=== PATIENT | male | born 1940 ===

== ENCOUNTER 2023-05-14 20:04 | Inpatient (IN) ==
[2023-05-14] MEDS ORDERED: Al Hydrox/Mg Hydrox/Simet LIQ 30 ML UDC PO ONE (20:56)
[2023-05-14] MEDS ORDERED: Famotidine IV 10 MG/ML 2 ml VIAL (20 mg) IV SLOW PU ONE (20:57)
[2023-05-15] MEDS ORDERED: Ondansetron 4 mg VIAL 2 MG/ML 2 ml VIAL IV PRN (01:05)
[2023-05-15] MEDS ORDERED: Calcium Carb (TUMS) 500 mg CHEW TAB PO PRN (01:06)
[2023-05-15] MEDS ORDERED: Remdesivir 100 mg Vial 200 MG in NS 0.9% 250 ml 210 ML IV ONE (01:46)
[2023-05-15] MEDS ORDERED: Dextrose 50% Syringe 50 ml 25 GM/50 ML SYRINGE IV PUSH PRN (02:01)
[2023-05-15 02:30] LABS: INR 1.36 (0.83-1.13)
[2023-05-15 03:00] LABS: Calcium 8.9 mg/dL (8.6-10.3); Creatinine, Serum 1.58 mg/dL (0.67-1.17); Potassium 4.1 mmol/L (3.5-5.0); eGFR CKD-EPI 43.4 (>60)
[2023-05-15 03:01] LABS: Albumin 3.8 g/dL (3.2-5.2); Albumin/Globulin Ratio 1.2 (1-3); Globulin 3.2 g/dL (2-4); Total Bilirubin 0.6 mg/dL (0.2-1.0)
[2023-05-15] MEDS ORDERED: Nystatin TOP POWDER 15 GM BTL TOPICAL PRN (03:07)
[2023-05-15 06:37] LABS: ABS Lymphocytes 0.8 10^3/uL (1.0-4.8); ABS Monocytes 0.2 10^3/uL (0.0-1.1); ABS Neutrophils 6.7 10^3/uL (1.5-7.6); ABS Nucleated RBC 0.01 10^3/ul; Hematocrit 49.2 % (38-53); Hemoglobin 16.6 g/dL (13.2-16.3); Lymphocyte % 9.9 %; Mean Corpuscular Hemoglobin 30.4 pg (27-33); Mean Corpuscular Hgb Conc 33.8 g/dL (31-36); Mean Corpuscular Volume 90.2 fL (80-97); Mean Platelet Volume 8.8 fL (7.5-11.2); Nucleated Red Blood Cells % 0.1 %/100WBC (0.0-0.8); Platelet Count 151 10^3/uL (150-450); Red Blood Count 5.46 10^6/uL (4.06-5.63); Red Cell Distribution Width 14.2 % (12-17); White Blood Count 7.7 10^3/uL (3.6-10.2)
[2023-05-15 06:55] LABS: Magnesium 2.2 mg/dL (1.9-2.7)
[2023-05-15 08:27] LABS: High Sensitivity Troponin 1 Hr 116 pg/mL (<20)
[2023-05-15] MEDS: Aspirin EC 81 mg TAB.EC (enteric coated) PO SCH (09:20)
[2023-05-15] MEDS: Insulin GLARGINE 100 un/ml 10 ml VIAL SUBCUT SCH (09:50)
[2023-05-15] MEDS: Dexamethasone IV 4 MG/ML VIAL 1 ml VIAL IV SLOW PU SCH (09:52)
[2023-05-15] MEDS ORDERED: NS 0.9% 500 ml BAG 500 ML IV ONE (12:36)
[2023-05-15] MEDS ORDERED: Lorazepam PYXIS KEY PRN ×2 (12:52→12:56)
[2023-05-15] MEDS ORDERED: LORazepam 2 mg VIAL 1 ml IV PUSH PRN (12:53)
[2023-05-15] MEDS ORDERED: LORazepam 2 mg VIAL 1 ml ONE (12:56)
[2023-05-15] MEDS ORDERED: LORazepam 2 mg VIAL 1 ml IV PUSH ONE (12:56)
[2023-05-15] MEDS ORDERED: Iodixanol (CONTRAST) 320 MG/ML 100 ML SDV IV ONE (13:02)
[2023-05-15] MEDS ORDERED: NS 0.9% 1000 ml BAG 1,000 ML IV ONE (13:27)
[2023-05-15 13:45] LABS: Activated Partial Thrombo Time 35.7 seconds (26.0-38.0); INR 1.43 (0.83-1.13)
[2023-05-16] MEDS ORDERED: Lorazepam PYXIS KEY PRN ×2 (00:17→18:33)
[2023-05-16] MEDS ORDERED: LORazepam 2 mg VIAL 1 ml IV PUSH ONE ×2 (00:17→18:33)
[2023-05-16 07:47] LABS: ABS Basophils 0.1 10^3/uL (0.0-0.1); ABS Lymphocytes 0.6 10^3/uL (1.0-4.8); ABS Monocytes 0.6 10^3/uL (0.0-1.1); ABS Neutrophils 11.9 10^3/uL (1.5-7.6); ABS Nucleated RBC 0.01 10^3/ul; Hematocrit 49.6 % (38-53); Hemoglobin 16.4 g/dL (13.2-16.3); Lymphocyte % 4.9 %; Mean Corpuscular Volume 90.8 fL (80-97); Mean Platelet Volume 8.8 fL (7.5-11.2); Nucleated Red Blood Cells % 0.1 %/100WBC (0.0-0.8); Platelet Count 156 10^3/uL (150-450); Red Blood Count 5.47 10^6/uL (4.06-5.63); White Blood Count 13.1 10^3/uL (3.6-10.2)
[2023-05-16 07:53] LABS: INR 1.41 (0.83-1.13)
[2023-05-16 08:04] LABS: Albumin 3.8 g/dL (3.2-5.2); Albumin/Globulin Ratio 1.2 (1-3); Calcium 9.1 mg/dL (8.6-10.3); Creatinine, Serum 1.48 mg/dL (0.67-1.17); Globulin 3.1 g/dL (2-4); Potassium 4.3 mmol/L (3.5-5.0); Total Bilirubin 0.5 mg/dL (0.2-1.0); Total Protein 6.9 g/dL (6.4-8.9); eGFR CKD-EPI 46.9 (>60)
[2023-05-16] MEDS: Remdesivir 100 mg Vial 100 MG in NS 0.9% 250 ml 230 ML IV SCH (08:44)
[2023-05-16] MEDS: Insulin GLARGINE 100 un/ml 10 ml VIAL SUBCUT SCH (08:52)
[2023-05-16] MEDS: Aspirin EC 81 mg TAB.EC (enteric coated) PO SCH (08:59)
[2023-05-16] MEDS: Dexamethasone IV 4 MG/ML VIAL 1 ml VIAL IV SLOW PU SCH (09:04)
[2023-05-16] MEDS ORDERED: Droperidol 5 MG/2 ML 2 ML VIAL IV ONE ×2 (21:10→23:01)
[2023-05-17 08:12] LABS: ABS Lymphocytes 0.9 10^3/uL (1.0-4.8); ABS Monocytes 0.5 10^3/uL (0.0-1.1); ABS Neutrophils 13.7 10^3/uL (1.5-7.6); ABS Nucleated RBC 0.03 10^3/ul; Hemoglobin 17.1 g/dL (13.2-16.3); Lymphocyte % 5.7 %; Mean Corpuscular Hemoglobin 29.6 pg (27-33); Mean Corpuscular Hgb Conc 32.9 g/dL (31-36); Mean Platelet Volume 8.8 fL (7.5-11.2); Nucleated Red Blood Cells % 0.2 %/100WBC (0.0-0.8); Platelet Count 174 10^3/uL (150-450); Red Blood Count 5.77 10^6/uL (4.06-5.63); Red Cell Distribution Width 13.8 % (12-17); White Blood Count 15.1 10^3/uL (3.6-10.2)
[2023-05-17 08:14] LABS: INR 1.57 (0.83-1.13)
[2023-05-17 08:29] LABS: Albumin 3.8 g/dL (3.2-5.2); Albumin/Globulin Ratio 1.2 (1-3); Calcium 9.2 mg/dL (8.6-10.3); Creatinine, Serum 1.38 mg/dL (0.67-1.17); Globulin 3.1 g/dL (2-4); Potassium 4.6 mmol/L (3.5-5.0); Total Bilirubin 0.5 mg/dL (0.2-1.0); Total Protein 6.9 g/dL (6.4-8.9); eGFR CKD-EPI 51.1 (>60)
[2023-05-17] MEDS: Aspirin EC 81 mg TAB.EC (enteric coated) PO SCH (10:10)
[2023-05-17] MEDS: Dexamethasone IV 4 MG/ML VIAL 1 ml VIAL IV SLOW PU SCH (10:10)
[2023-05-17] MEDS: Insulin GLARGINE 100 un/ml 10 ml VIAL SUBCUT SCH (10:13)
[2023-05-17] MEDS: Remdesivir 100 mg Vial 100 MG in NS 0.9% 250 ml 230 ML IV SCH (10:13)
[2023-05-17] MEDS ORDERED: Droperidol 5 MG/2 ML 2 ML VIAL IV PRN (12:12)
[2023-05-17] MEDS ORDERED: LORazepam 2 mg VIAL 1 ml IV PUSH PRN (12:13)
[2023-05-17] MEDS ORDERED: Lorazepam PYXIS KEY PRN (12:13)
[2023-05-17] MEDS ORDERED: Albuterol 2.5mg/3 ml (0.083%) NEB.SOLN INH PRN (15:30)
[2023-05-17] MEDS: Albuterol 2.5mg/3 ml (0.083%) NEB.SOLN INH SCH ×2 (16:03→19:31)
[2023-05-17] MEDS: SPIRIVA Respimat (tiotropium) 2.5 mcg/inh Inhaler INH SCH (18:18)
[2023-05-18] MEDS: Albuterol 2.5mg/3 ml (0.083%) NEB.SOLN INH SCH ×2 (01:42→07:58)
[2023-05-18] MEDS: SPIRIVA Respimat (tiotropium) 2.5 mcg/inh Inhaler INH SCH (07:58)
[2023-05-18] MEDS ORDERED: Albuterol 2.5mg/3 ml (0.083%) NEB.SOLN INH PRN (08:04)
[2023-05-18] MEDS: Insulin GLARGINE 100 un/ml 10 ml VIAL SUBCUT SCH (08:35)
[2023-05-18] MEDS: Remdesivir 100 mg Vial 100 MG in NS 0.9% 250 ml 230 ML IV SCH (08:36)
[2023-05-18] MEDS: Dexamethasone IV 4 MG/ML VIAL 1 ml VIAL IV SLOW PU SCH (08:36)
[2023-05-18 08:38] LABS: INR 1.36 (0.83-1.13)
[2023-05-18 08:45] LABS: Hematocrit 51.8 % (38-53); Hemoglobin 17.1 g/dL (13.2-16.3); Mean Corpuscular Hemoglobin 29.8 pg (27-33); Mean Corpuscular Hgb Conc 33.1 g/dL (31-36); Mean Platelet Volume 8.8 fL (7.5-11.2); Platelet Count 162 10^3/uL (150-450); Red Blood Count 5.75 10^6/uL (4.06-5.63); Red Cell Distribution Width 13.9 % (12-17); White Blood Count 15.3 10^3/uL (3.6-10.2)
[2023-05-18] MEDS: Aspirin EC 81 mg TAB.EC (enteric coated) PO SCH (08:46)
[2023-05-18 08:53] LABS: Albumin 3.7 g/dL (3.2-5.2); Albumin/Globulin Ratio 1.2 (1-3); Creatinine, Serum 1.48 mg/dL (0.67-1.17); Globulin 3.1 g/dL (2-4); Total Bilirubin 0.4 mg/dL (0.2-1.0); Total Protein 6.8 g/dL (6.4-8.9); eGFR CKD-EPI 46.9 (>60)
[2023-05-18 12:47] LABS: Glucose Confirmatory 421 mg/dL (70-100)
[2023-05-19] MEDS: SPIRIVA Respimat (tiotropium) 2.5 mcg/inh Inhaler INH SCH (08:10)
[2023-05-19 08:16] LABS: ABS Basophils 0.1 10^3/uL (0.0-0.1); ABS Eosinophils 0.1 10^3/uL (0.0-0.5); ABS Lymphocytes 1.5 10^3/uL (1.0-4.8); ABS Monocytes 0.8 10^3/uL (0.0-1.1); ABS Neutrophils 12.7 10^3/uL (1.5-7.6); Eosinophil % 0.4 %; Hematocrit 48.7 % (38-53); Hemoglobin 16.3 g/dL (13.2-16.3); Mean Corpuscular Hgb Conc 33.4 g/dL (31-36); Mean Corpuscular Volume 89.8 fL (80-97); Mean Platelet Volume 8.6 fL (7.5-11.2); Platelet Count 165 10^3/uL (150-450); Red Blood Count 5.42 10^6/uL (4.06-5.63); Red Cell Distribution Width 13.8 % (12-17); White Blood Count 15.1 10^3/uL (3.6-10.2)
[2023-05-19 08:21] LABS: INR 1.39 (0.83-1.13)
[2023-05-19] MEDS: Insulin GLARGINE 100 un/ml 10 ml VIAL SUBCUT SCH (10:21)
[2023-05-19] MEDS: Dexamethasone IV 4 MG/ML VIAL 1 ml VIAL IV SLOW PU SCH (10:23)
[2023-05-19] MEDS: Aspirin EC 81 mg TAB.EC (enteric coated) PO SCH (10:25)
[2023-05-19] MEDS ORDERED: Senna TAB 8.6 mg TAB PO PRN (10:48)
[2023-05-19] MEDS: Polyethylene Glycol 3350 17 GM PACKET PO SCH (12:34)
[2023-05-20] MEDS: SPIRIVA Respimat (tiotropium) 2.5 mcg/inh Inhaler INH SCH (07:32)
[2023-05-20] MEDS: Dexamethasone IV 4 MG/ML VIAL 1 ml VIAL IV SLOW PU SCH (08:22)
[2023-05-20] MEDS: Aspirin EC 81 mg TAB.EC (enteric coated) PO SCH (08:24)
[2023-05-20] MEDS: Insulin GLARGINE 100 un/ml 10 ml VIAL SUBCUT SCH (08:27)
[2023-05-20] MEDS: Polyethylene Glycol 3350 17 GM PACKET PO SCH (08:37)
[2023-05-20 10:48] LABS: Hematocrit 46.5 % (38-53); Hemoglobin 15.7 g/dL (13.2-16.3); Mean Corpuscular Hemoglobin 30.2 pg (27-33); Mean Corpuscular Hgb Conc 33.7 g/dL (31-36); Mean Corpuscular Volume 89.6 fL (80-97); Mean Platelet Volume 8.6 fL (7.5-11.2); Platelet Count 162 10^3/uL (150-450); Red Cell Distribution Width 13.9 % (12-17); White Blood Count 15.9 10^3/uL (3.6-10.2)
[2023-05-20 10:54] LABS: INR 1.65 (0.83-1.13)
[2023-05-20 11:06] LABS: Albumin 3.1 g/dL (3.2-5.2); Calcium 8.5 mg/dL (8.6-10.3); Creatinine, Serum 1.36 mg/dL (0.67-1.17); Globulin 3.1 g/dL (2-4); Potassium 4.6 mmol/L (3.5-5.0); Total Bilirubin 0.4 mg/dL (0.2-1.0); Total Protein 6.2 g/dL (6.4-8.9)
[2023-05-21 07:30] LABS: Calcium 8.5 mg/dL (8.6-10.3); Creatinine, Serum 1.34 mg/dL (0.67-1.17); Potassium 4.2 mmol/L (3.5-5.0); eGFR CKD-EPI 52.9 (>60)
[2023-05-21] MEDS: Polyethylene Glycol 3350 17 GM PACKET PO SCH (08:35)
[2023-05-21] MEDS: Insulin GLARGINE 100 un/ml 10 ml VIAL SUBCUT SCH (08:35)
[2023-05-21] MEDS: Aspirin EC 81 mg TAB.EC (enteric coated) PO SCH (08:36)
[2023-05-21] MEDS: SPIRIVA Respimat (tiotropium) 2.5 mcg/inh Inhaler INH SCH (08:36)
[2023-05-22] MEDS ORDERED: Dextrose 50% Syringe 50 ml 25 GM/50 ML SYRINGE IV PUSH PRN ×2 (07:19→22:54)
[2023-05-22] MEDS: SPIRIVA Respimat (tiotropium) 2.5 mcg/inh Inhaler INH SCH (08:05)
[2023-05-22] MEDS: Polyethylene Glycol 3350 17 GM PACKET PO SCH (12:14)
[2023-05-22] MEDS: Aspirin EC 81 mg TAB.EC (enteric coated) PO SCH (12:18)
[2023-05-22] MEDS: Insulin GLARGINE 100 un/ml 10 ml VIAL SUBCUT SCH (12:38)
[2023-05-22 20:48] LABS: Glucose Confirmatory 402 mg/dL (70-100)
[2023-05-23] MEDS: Insulin GLARGINE 100 un/ml 10 ml VIAL SUBCUT SCH (08:21)
[2023-05-23] MEDS: SPIRIVA Respimat (tiotropium) 2.5 mcg/inh Inhaler INH SCH (08:27)
[2023-05-23] MEDS: Polyethylene Glycol 3350 17 GM PACKET PO SCH (08:54)
[2023-05-23] MEDS: Aspirin EC 81 mg TAB.EC (enteric coated) PO SCH (08:59)
[2023-05-23 14:36] VITALS: BP 111/75
== END 2023-05-23 16:50 | disposition home or self-care (01) | DRG 177 ==
LOC: ED 20:04 → EDHOLD 22:10 → SUATTDRO 22:10 → MED 23:31
PROVIDERS: ADMIT Internal Medicine; ATTEND Internal Medicine